=== PATIENT | male | born 1975 | race Caucasian/White ===

== ENCOUNTER → 2023-09-01 | Outpatient (CLI) | payer OTHER | END | disposition home or self-care (01) | LOC: XYW 10:12 | DX: K40.20 Bilateral inguinal hernia, without obstruction or gangrene, not specified as recurrent (principal); K57.30 Diverticulosis of large intestine without perforation or abscess without bleeding; M47.816 Spondylosis without myelopathy or radiculopathy, lumbar region | CPT/HCPCS: 72192 ==